=== PATIENT | female | born 1955 | race Caucasian/White ===

== ENCOUNTER 2016-06-15 11:34 | Observation (INO) ==
--- NOTE | 2016-06-15 13:18 | Emergency Department Note ---
Addendum entered and electronically signed by Yoselin Helton DO 15:37: This is an addendum for patient's history. She does not use dialysis. I believe this is possibly supposed to be diabetes. This was an error. Original Note: Disposition Clinical Impression: Lower gastrointestinal hemorrhage Disposition: Home, Self-Care Condition: Good Time of Disposition: 14:45 General Adult HPI - General Chief complaint: ED GI Bleed Stated complaint: rectal bleeding Time Seen by Provider: 06/15/16 11:49 Source: patient Limitations: no limitations - History of Present Illness HPI Narrative: Patient had 4 episodes of hematochezia prior to arrival. Had a colonoscopy with 4 polyps removed 2 weeks ago. Had abdominal cramping and diaphoresis while having the hematochezia. No other associated symptoms. Denies abdominal pain at this time. Pain Scale: 0 - Related Data Home Medications Medication Instructions Recorded Confirmed Ammonium Lactate [Rekha-Hydrolac] 1 appl TP TID 06/06/16 06/15/16 Aspirin 81 mg PO DAILY 06/06/16 06/15/16 Atorvastatin [Lipitor] 40 mg PO HS 06/06/16 06/15/16 Dulaglutide [Trulicity] 0.75 mg SQ QWEEK 06/06/16 06/15/16 Duloxetine HCl [Cymbalta] 60 mg PO DAILY 06/06/16 06/15/16 Fenofibrate [Lofibra] 160 mg PO DAILY 06/06/16 06/15/16 HYDROcodone/Acet 5/325 mg [[place] 1 tab PO Q6H PRN 06/06/16 06/15/16 5-325 mg] Levothyroxine [Synthroid] 50 mcg PO DAILY 06/06/16 06/15/16 Linagliptin [Tradjenta] 5 mg PO DAILY 06/06/16 06/15/16 Lisinopril [Zestril] 40 mg PO DAILY 06/06/16 06/15/16 Magnesium Oxide [Magnesium] 400 mg PO DAILY 06/06/16 06/15/16 Metformin HCl [Glucophage] 1,000 mg PO BID 06/06/16 06/15/16 [place]-3 Acid Ethyl Esters [Lovaza] 4 gm PO DAILY 06/06/16 06/15/16 Pregabalin [Lyrica] 150 mg PO TID 06/06/16 06/15/16 Ranitidine HCl [Zantac] 150 mg PO BID 06/06/16 06/15/16 glipiZIDE [Glipizide] 10 mg PO BID 06/06/16 06/15/16 Allergies Allergy/AdvReac Type Severity Reaction Status Date / Time No Known Allergies Allergy Verified 06/15/16 11:36 All systems ED: reviewed and negative except as stated. Constitutional: Denies: fever, chills Cardiovascular: Denies: chest pain, palpitations, dyspnea on exertion, syncope Respiratory: Denies: cough, dyspnea Gastrointestinal: Reports: abdominal pain (Cramping early this morning when she had hematochezia.), diarrhea ( 2 week history of intermittent diarrhea), hematochezia. Denies: nausea, vomiting Genitourinary: Denies: urgency, dysuria, frequency, hematuria Musculoskeletal: Denies: back pain, neck pain Integumentary: Denies: rash Neurological: Denies: headache, weakness Past Medical History - Past Medical History Medical history: Reports: dialysis, hyperlipidemia, hypertension, thyroid disease Surgical history: Reports: appendectomy, hysterectomy, thyroidectomy Psychiatric history: Reports: depression SODA ROOM OPERATOR history: Reports: no SODA ROOM OPERATOR history - Social History Smoking Status: Current every day smoker Smokeless Tobacco Status: No Alcohol use: Reports: none Drug use: Reports: none Physical Exam - General Limitations: no limitations General appearance: alert, in no apparent distress - Head Head exam: atraumatic, normocephalic - Eye Eye exam: Present: normal appearance, PERRL, EOMI - ENT ENT exam: normal exam, normal oropharynx, mucous membranes moist - Neck Neck exam: Present: normal inspection, full ROM - Chest Chest inspection: Present: normal inspection, symmetric chest wall rise. Absent : tenderness - Respiratory Respiratory exam: Present: normal lung sounds bilaterally. Absent: respiratory distress - Cardiovascular Cardiovascular exam: Present: regular rate, normal rhythm, normal heart sounds - Abdominal Exam Abdominal exam: Present: soft, Non-Tender, normal bowel sounds - Extremities Exam Extremities exam: Present: normal inspection, full ROM, normal capillary refill. Absent: tenderness, pedal edema - Back Exam Back exam: Present: normal inspection, full ROM. Absent: tenderness - Neurological Exam Neurological exam: Present: alert, oriented X3 - Psychiatric Psychiatric exam: Present: normal affect, normal mood - Skin Skin exam: Present: warm, dry, intact, normal color Course Course Narrative: Well-appearing female patient resting comfortably in bed. On my initial presentation to the room patient was attempting to urinate. She states that this morning she woke up felt her stomach "gurgling." She then went to have a bowel movement. She states that when she feels that she thinks she has diarrhea. When she stood up she noticed that the toilet was full of a bright red blood as well as blood clots. She states this happened 3 other times. She states when her abdomen cramps this morning she got very sweaty. She denies any abdominal pain nausea or vomiting at this time. Her abdomen is soft nontender on exam. She is obese so this limits the exam. She denies any shortness of breath or chest pain. Her lung sounds are clear and her heart tones are normal. She does take aspirin daily. She had a colonoscopy 2 weeks ago with 4 polyps removed. She has had no bleeding since. She is complaining of intermittent diarrhea since May 21. She states that this comes and goes. We will get basic lab workup on patient as well as do a rectal exam and sent for a UA. She has no request at this time. - Reevaluation(s) Reevaluation #1: Patient's hemoglobin has decreased to 11.7 from 15 on June 06. She has had no episodes of hematochezia since she has been here. She is resting comfortably in bed. She is hyperkalemic at 5.5 and hyperglycemic at 356. We will give her 4 units of insulin. I spoke with Dr. Moran we will admit her to the hospital. - Consultations Consultation #1: Spoke with Dr. Moran. He is requesting admission and states he will see the patient while she is here. Time: 14:28 Consultation #2: Spoke with Dao EARL she accepted the Pt in stable condition Time: 14:29 Vital Signs Temperature 97.5 F L 06/15/16 11:36 Pulse Rate 105 06/15/16 11:36 Respiratory Rate 18 06/15/16 11:36 Blood Pressure 156/71 06/15/16 11:36 O2 Sat by Pulse Oximetry 94 06/15/16 11:36 Temperature 97.9 F 06/15/16 16:22 Pulse Rate 89 06/15/16 16:22 Respiratory Rate 17 06/15/16 16:22 Blood Pressure 148/70 06/15/16 16:22 O2 Sat by Pulse Oximetry 95 06/15/16 16:22 Oxygen Delivery Oxygen Delivery Room Air Medical Decision Making - Medical Records Medical records reviewed: Yes I reviewed the patient's medical records. - Lab Data Lab results reviewed: Yes I reviewed the patient's lab results. Result diagrams: 06/15/16 14:52 06/15/16 13:28 Lab Results 06/15/16 06/15/16 06/15/16 Range/Units 13:28 13:28 14:00 WBC 10.6 (4.3-11.1) K/mcL RBC 4.08 (3.82-4.97) M/mcL Hgb 11.7 (11.5-15.4) g/dL Hct 35.3 (35.3-44.9) % MCV 86.5 (83.0-100.0) fL MCH 28.7 (28.0-33.3) pg MCHC 33.1 (31.6-35.5) g/dL RDW 13.7 (11.5-14.5) % Plt Count 334 (140-400) K/mcL MPV 9.7 (9.4-12.4) fL Immature Gran % 0.5 (0-4) % Seg Neutrophils % 71.7 % Lymphocytes % 20.9 % Monocytes % 5.9 % Eosinophils % 0.7 % Basophils % 0.3 % Neutrophils # 7.6 (1.6-8.9) K/mcL Lymphocytes # 2.2 (0.6-4.6) K/mcL Monocytes # 0.6 (0.0-1.3) K/mcL Eosinophils # 0.1 (0.0-0.6) K/mcL Basophils # 0.0 (0.0-0.2) K/mcL Sodium 133 L (136-145) mEq/L Potassium 5.5 H (3.5-4.5) mEq/L Chloride 101 (98-109) mEq/L Carbon Dioxide 22 (19-29) mEq/L BUN 31 H (7-20) mg/dL Creatinine 1.09 (0.57-1.11) mg/dL Est GFR ( Amer) > 60 (> 60) Est GFR (Non-Af Amer) 51 L (> 60) BUN/Creatinine Ratio 28 H (6-26) Glucose 356 H (70-99) mg/dL Calculated Osmolality 297 (280-300) Calcium 10.1 (8.6-10.8) mg/dL Total Bilirubin 0.3 (0.2-1.2) mg/dL AST 17 (5-34) Units/L ALT 22 (0-55) Units/L Alkaline Phosphatase 63 (38-126) Units/L Serum Total Protein 6.2 (6.0-8.3) g/dL Albumin 3.1 L (3.5-5.0) g/dL Globulin 3.1 (2.4-3.5) g/dL Albumin/Globulin Ratio 1.0 L (1.1-2.2) Stool Occult Blood Positive A (Negative) 06/15/16 Range/Units 14:52 WBC (4.3-11.1) K/mcL RBC (3.82-4.97) M/mcL Hgb 11.1 L (11.5-15.4) g/dL Hct 33.3 L (35.3-44.9) % MCV (83.0-100.0) fL MCH (28.0-33.3) pg MCHC (31.6-35.5) g/dL RDW (11.5-14.5) % Plt Count (140-400) K/mcL MPV (9.4-12.4) fL Immature Gran % (0-4) % Seg Neutrophils % % Lymphocytes % % Monocytes % % Eosinophils % % Basophils % % Neutrophils # (1.6-8.9) K/mcL Lymphocytes # (0.6-4.6) K/mcL Monocytes # (0.0-1.3) K/mcL Eosinophils # (0.0-0.6) K/mcL Basophils # (0.0-0.2) K/mcL Sodium (136-145) mEq/L Potassium (3.5-4.5) mEq/L Chloride (98-109) mEq/L Carbon Dioxide (19-29) mEq/L BUN (7-20) mg/dL Creatinine (0.57-1.11) mg/dL Est GFR ( Amer) (> 60) Est GFR (Non-Af Amer) (> 60) BUN/Creatinine Ratio (6-26) Glucose (70-99) mg/dL Calculated Osmolality (280-300) Calcium (8.6-10.8) mg/dL Total Bilirubin (0.2-1.2) mg/dL AST (5-34) Units/L ALT (0-55) Units/L Alkaline Phosphatase (38-126) Units/L Serum Total Protein (6.0-8.3) g/dL Albumin (3.5-5.0) g/dL Globulin (2.4-3.5) g/dL Albumin/Globulin Ratio (1.1-2.2) Stool Occult Blood (Negative) - Radiology Data Radiology results reviewed: Yes I reviewed the patient's radiology results. Attestation Statement - Attestation Attestation: I examined this patient and my medical decision-making was reviewed with the STORM SASH MAKER/PA/Advanced Practice Nurse/Resident Physician. I agree with the documented findings, disposition and treatment plan as described except to the extent set forth below. 61-year-old female presents to the emergency department because of rectal bleeding. She had 4 bloody bowel movements since 6 AM today. She became diaphoretic at one point but that has since resolved. Denies abdominal discomfort. No dysuria. No hematuria. No vomiting. She did have colonoscopy 2-1/[address] Moran at which time several polyps were removed. She had no bleeding the day of the procedure. No history of diverticulitis or colitis. No history of GI bleeds. No recent change in medications. Takes aspirin daily but no other anticoagulant. Pleasant female in no apparent distress. Oropharynx clear mucous membranes moist. Chest is clear to auscultation bilaterally. Abdomen soft, nondistended nontender. Rectal exam with bright red blood on examination. No hemorrhoids appreciated. Extremities well perfused, warm and dry. He will was 11.7 but this is down from 15.2 on her most recent labs within the last 2 weeks. The was elevated at 31 creatinine 0.7. Case was discussed with Dr. Moran who recommended admission to the hospital he will see in consultation. She will be admitted for serial hemoglobin and possible repeat colonoscopy.
[2016-06-15 13:35] LABS: Basophils % 0.3 %; Eosinophils # 0.1 K/mcL (0.0-0.6); Eosinophils % 0.7 %; Hematocrit 35.3 % (35.3-44.9); Hemoglobin 11.7 g/dL (11.5-15.4); Immature Granulocytes % 0.5 % (0-4); Lymphocytes # 2.2 K/mcL (0.6-4.6); Lymphocytes % 20.9 %; Mean Corpuscular HGB Conc 33.1 g/dL (31.6-35.5); Mean Corpuscular Hemoglobin 28.7 pg (28.0-33.3); Mean Corpuscular Volume 86.5 fL (83.0-100.0); Mean Platelet Volume 9.7 fL (9.4-12.4); Monocytes # 0.6 K/mcL (0.0-1.3); Monocytes % 5.9 %; Neutrophils # 7.6 K/mcL (1.6-8.9); Platelet Count 334 K/mcL (140-400); Red Blood Count 4.08 M/mcL (3.82-4.97); Red Cell Distribution Width 13.7 % (11.5-14.5); Segmented Neutrophils % 71.7 %
[2016-06-15 13:51] LABS: Alanine Aminotransferase 22 Units/L (0-55); Albumin 3.1 g/dL (3.5-5.0); Alkaline Phosphatase 63 Units/L (38-126); Aspartate Amino Transferase 17 Units/L (5-34); BUN/Creatinine Ratio 28 (6-26); Bilirubin,Total 0.3 mg/dL (0.2-1.2); Blood Urea Nitrogen 31 mg/dL (7-20); Calcium 10.1 mg/dL (8.6-10.8); Carbon Dioxide 22 mEq/L (19-29); Chloride 101 mEq/L (98-109); Globulin 3.1 g/dL (2.4-3.5); Glucose 356 mg/dL (70-99); Osmolality,Calculated 297 (280-300); Potassium 5.5 mEq/L (3.5-4.5); Sodium 133 mEq/L (136-145); Total Protein 6.2 g/dL (6.0-8.3); eGFR For African Americans > 60 (> 60); eGFR For Non-African Americans 51 (> 60)
[2016-06-15] MEDS ORDERED: Insulin Regular, Human 100 UNIT/ML SQ ONE ×2 (14:15→14:16)
[2016-06-15] MEDS ORDERED: Naloxone 0.4 MG/ML INJ IVP PRN (14:29)
[2016-06-15] MEDS ORDERED: *HR* Dextrose 50 % in Water (Syg) 50 ML SYRINGE IVP PRN (14:36)
[2016-06-15] MEDS ORDERED: Dextrose Gel 15 GM PO PRN ×2 (14:36)
[2016-06-15] MEDS ORDERED: D5% in Water 1,000 ML IVC PRN (14:36)
[2016-06-15 14:58] LABS: Hematocrit 33.3 % (35.3-44.9); Hemoglobin 11.1 g/dL (11.5-15.4)
--- NOTE | 2016-06-15 15:21 | Internal Med History&Physical ---
<Carlos Dcsandra Faustin - Last Filed: 06/15/16 15:29> Date of Encounter: 06/15/16 Time of Encounter: 15:15 Assessment and Plan (1) Hematochezia Current visit: Yes Status: Acute with 3 large volume bloody stools prior to admission; none since arrival. Had C- scope 2 weeks ago with 4 polyps removed. Hgb 11 (previously 15 on 06/06/2016). Stool occult blood + in ED. Not on anticoagulation. Take NSAIDS occasionally, no Etoh use. Hold home ASA. Clear liquid diet, IV PPI, monitor H&H, transfuse for Hgb less than 8. GI consulted (2) Abdominal hernia Current visit: Yes Status: Acute suspected based on exam. No previous imaging. Check ABD CT Qualifiers: Hernia type: other abdominal hernia Obstruction and gangrene presence: without obstruction or gangrene Qualified Code(s): K45.8 - Other specified abdominal hernia without obstruction or gangrene (3) GERD (gastroesophageal reflux disease) Current visit: Yes Status: Acute per hx. Sx's typically controlled with PPI. Pt reports worsening sx's for 3 weeks prior to admission. IV PPI. GI consulted Qualifiers: Esophagitis presence: esophagitis presence not specified Qualified Code(s) : K21.9 - Gastro-esophageal reflux disease without esophagitis (4) Hyperkalemia Current visit: Yes Status: Acute K 5.5. Kayexalate. Monitor repeat CMP (5) Hypertension Current visit: Yes Status: Acute per hx. BP controlled in ED. Hold home BP medications at this time with possible GI bleed. Resume if BP elevates or when able to take full diet. Monitor BP Qualifiers: Hypertension type: essential hypertension Qualified Code(s): I10 - Essential (primary) hypertension (6) Diabetes Current visit: Yes Status: Acute per hx. Recent Hgb A1c 7.2 per patient report. Blood sugar in 300s on arrival due to not taking home medications. Received sub-q insulin in the ED. Hold home oral hypoglycemics. SSI. Monitor blood sugar and titrate PRN Qualifiers: Diabetes mellitus type: type 2 Diabetes mellitus complication status: with neurologic complications Diabetes mellitus complication detail: with polyneuropathy Diabetes mellitus long term care social worker insulin use: without longterm use Qualified Code(s): E11.42 - Type 2 diabetes mellitus with diabetic polyneuropathy (7) DVT prophylaxis Current visit: Yes Status: Acute SCD Internal Medicine - H&P: HPI Chief complaint: bloody stool Admitted From: Home History of present illness: Ms. Hammond is a 61 year old female with pMH obesity, diabetes, HTN and GERD who presented to [facility] on 06/15/2016 with reports of large volume bright red stools. She was placed in observation status for continued H&H monitor and GI consultation. Information obtained from chart review and patient report. Patient says stomach was "gurgling" with cramping earlier today. She went to bath room and had bowel movement when she noticed toilet was "full of blood and cots". She reports 3 large volume bloody stools prior to admission. Also reported worsening GERD, says sx's typically controlled with PPI but has required tums over the last 3 weeks. No ABD pain, N/V, no CP, no SOB. Past Med Surg Social Fam HX - Past Medical History Medical history: dialysis, hyperlipidemia, hypertension, thyroid disease Psychiatric history: depression - Past Surgical History Surgical History: appendectomy, hysterectomy, thyroidectomy - Social History Smoking Status: Current every day smoker Smokeless Tobacco Status: No Alcohol use: none Drug use: none - Family History Father Hx Family Cancer: Yes (colon cancer ) Internal Medicine - H&P: Meds Ammonium Lactate [Rekha-Hydrolac] 1 appl TP TID 06/06/16 [History] Aspirin 81 mg PO DAILY 06/06/16 [History] Atorvastatin [Lipitor] 40 mg PO HS 06/06/16 [History] Dulaglutide [Trulicity] 0.75 mg SQ QWEEK 06/06/16 [History] Duloxetine HCl [Cymbalta] 60 mg PO DAILY 06/06/16 [History] Fenofibrate [Lofibra] 160 mg PO DAILY 06/06/16 [History] HYDROcodone/Acet 5/325 mg [[place] 5-325 mg] 1 tab PO Q6H PRN 06/06/16 [History] Levothyroxine [Synthroid] 50 mcg PO DAILY 06/06/16 [History] Linagliptin [Tradjenta] 5 mg PO DAILY 06/06/16 [History] Lisinopril [Zestril] 40 mg PO DAILY 06/06/16 [History] Magnesium Oxide [Magnesium] 400 mg PO DAILY 06/06/16 [History] Metformin HCl [Glucophage] 1,000 mg PO BID 06/06/16 [History] [place]-3 Acid Ethyl Esters [Lovaza] 4 gm PO DAILY 06/06/16 [History] Pregabalin [Lyrica] 150 mg PO TID 06/06/16 [History] Ranitidine HCl [Zantac] 150 mg PO BID 06/06/16 [History] glipiZIDE [Glipizide] 10 mg PO BID 06/06/16 [History] Allergies No Known Allergies Allergy (Verified 06/15/16 11:36) All Systems PM: A 10-system review of systems was performed and is negative for pertinent findings except as documented above in the HPI. - Constitutional Constitutional: no chills, no fever(s), no night sweats - EENT Eyes: no change in vision, no discharge, no pain, no photophobia Ears: no ear discharge, no ear pain, no tinnitus Nose, mouth and throat: no dysphagia, no nasal discharge, no neck pain, no sore throat - Cardiovascular Cardiovascular ROS IM: no chest pain, no diaphoresis, no dyspnea, no lightheadedness, no palpitations, no syncope - Respiratory Respiratory: no cough, no dyspnea, no wheezing, no excessive phlegm production - Gastrointestinal Gastrointestinal: change in bowel habits, cramping, dyspepsia, heartburn, hematochezia, loose stools, no abdominal pain, no hematemesis, no melena, no nausea, no vomiting - Genitourinary Genitourinary: no change in urinary stream, no dysuria, no flank pain, no hematuria - Musculoskeletal Musculoskeletal ROS IM: no numbness, no tingling - Integumentary Integumentary IM: no rash, no unusual bruising - Neurological Neurological ROS: no confusion, no convulsions, no focal weakness, no numbness, no tingling, no tremor(s) - Hematologic/Lymphatic Hematologic/Lymphatic: no easy bruising - Constitutional Vitals: Temp Pulse Resp BP Pulse Ox 97.5 F L 87 18 144/57 94 06/15/16 11:36 06/15/16 13:38 06/15/16 13:38 06/15/16 13:38 06/15/16 13:38 General appearance: Present: A&O X 3, no acute distress, obese - Head Head exam: Present: atraumatic, normocephalic - Eye Eye exam: Present: PERRL, conjuntiva pink, sclera anicteric Pupils: Present: PERRL - Neck Neck exam general surgery: Present: supple, trachea midline. Absent: lymphadenopathy - Respiratory Respiratory exam: Present: CTAB. Absent: accessory muscle use, rales, rhonchi, wheezes - Cardiovascular Cardiovascular exam: Present: RRR, +S1, +S2. Absent: diastolic murmur, gallop, rubs, systolic murmur - GI/Abdominal GI/Abdominal exam: Present: hernia, normal bowel sounds, soft, no peritoneal signs. Absent: distended, tenderness - Extremities Exam Extremities exam: Present: warm, radial pulses palpable and symetrical. Absent : calf tenderness, cyanotic, pedal edema - Neurological Exam Neurological exam: Present: CN II-XII intact, oriented X3, no focal deficits. Absent: pronater drift, facial droop, speech deficit - Skin Skin exam: Present: dry, intact Internal Med - H&P Results - Labs CBC & Chem 7: 06/15/16 14:52 06/15/16 13:28 Labs: Short CBC 06/15/16 06/15/16 Range/Units 13:28 14:52 WBC 10.6 (4.3-11.1) K/mcL Hgb 11.7 11.1 L (11.5-15.4) g/dL Hct 35.3 33.3 L (35.3-44.9) % Plt Count 334 (140-400) K/mcL Neutrophils # 7.6 (1.6-8.9) K/mcL BMP 06/15/16 13:28 Sodium 133 L Potassium 5.5 H Chloride 101 Carbon Dioxide 22 BUN 31 H Creatinine 1.09 Glucose 356 H Calcium 10.1 Liver Function 06/15/16 Range/Units 13:28 Total Bilirubin 0.3 (0.2-1.2) mg/dL AST 17 (5-34) Units/L ALT 22 (0-55) Units/L Alkaline Phosphatase 63 (38-126) Units/L Albumin 3.1 L (3.5-5.0) g/dL <Hany Stone - Last Filed: 06/15/16 17:09> Date of Encounter: 06/15/16 Time of Encounter: 16:30 Internal Medicine - H&P: HPI History of present illness: Ms. Hammond is a 61 year old female All Systems PM: A 10-system review of systems was performed and is negative for pertinent findings except as documented above in the HPI. - Constitutional Vitals: Temp Pulse Resp BP Pulse Ox 97.9 F 89 17 148/70 95 06/15/16 16:22 06/15/16 16:22 06/15/16 16:22 06/15/16 16:22 06/15/16 16:22 Internal Med - H&P Results - Labs CBC & Chem 7: 06/15/16 14:52 06/15/16 13:28 Labs: Urine 06/15/16 Range/Units 15:42 Urine Color Yellow (Yellow) Urine Clarity Cloudy A (Clear) Urine pH 6.0 (5.0-8.0) pH Units Ur Specific [place] 1.025 (1.010-1.025) Urine Protein >=300 H (Neg-Trace) mg/dL Urine Glucose (UA) 500 H (Normal) mg/dL - Attending Attestation I examined this patient and my medical decision-making was reviewed with the nurse practitioner. I agree with the documented history of present illness, review of systems, past medical, surgical social and family histories and examination findings, disposition and treatment plan as described above except to any changes set forth below. 61-year-old female patient with a history of colon polyps with recent colonoscopy about 2 weeks back presented to the ER with complaints of rectal bleeding. She had 2-3 episodes of large volume rectal bleeding with some blood clots early this morning. Since coming to the ER, she has not had any further episodes. She denies any abdominal pain, nausea or vomiting. She takes Advil about 1 tablet once or twice weekly. She does have a history of GERD and takes PPI. She is feeling much better now. No fever chills or night sweats. On examination, patient is awake and alert. Heart sounds and respiratory examination within normal limits. Abdominal examination shows an abdominal hernia without any tenderness. Acute GI bleed: Consult GI. Hemoglobin 11.7 today compared to 15 earlier this month. Will monitor blood counts. Continue PPI. Moderate risk for complications. Hyperkalemia: We will recheck potassium levels and treat accordingly. Abdominal hernia: No obstruction or strangulation. Currently no symptoms. Follow up outpatient with PCP and possibly surgery. Essential hypertension: Monitor blood pressure. Resume home medications. Diabetes mellitus type 2: Monitor blood sugars. Patient does have underlying diabetic neuropathy. Continue Lyrica.
[2016-06-15] MEDS ORDERED: *HR* HYDROcodone/Acet 5/325 mg TABLET PO PRN (15:40)
[2016-06-15] MEDS ORDERED: 0.9 % Sodium Chloride 1,000 ML IVC SCH (15:45)
[2016-06-15 16:05] LABS: Bilirubin,Urine Negative (Negative); Blood,Urine Negative (Negative); Clarity,Urine Cloudy (Clear); Color,Urine Yellow (Yellow); Glucose,Urine (UA) 500 mg/dL (Normal); Ketones,Urine Negative (Negative); Leukocyte Esterase,Urine Trace (Negative); Nitrite,Urine Positive (Negative); Protein,Urine >=300 mg/dL (Neg-Trace); Specific Gravity,Urine 1.025 (1.010-1.025); Urobilinogen,Urine Normal (Normal)
[2016-06-15 16:06] LABS: Bacteria,Urine Many per hpf (None-Few); Hyaline Casts,Urine None Seen per lpf (None-Few); RBC,Urine 0-3 per hpf (0-3); Squamous Epithelial Cell,Urine Moderate per lpf (None-Few); WBC,Urine 30-50 per hpf (0-3)
[2016-06-15] MEDS ORDERED: Pregabalin 75 MG CAPSULE PO ONE (17:44)
[2016-06-15] MEDS: Nicotine 21 MG PATCH.TD24 TD SCH (17:53)
[2016-06-15] MEDS: Insulin LISPRO 300 UNITS/3 ML VIAL SQ SCH (17:58)
[2016-06-15 20:19] LABS: Hematocrit 31.7 % (35.3-44.9); Hemoglobin 10.6 g/dL (11.5-15.4)
[2016-06-15] MEDS ORDERED: PEG/Electrolytes/Ascorbic Acid 1 EACH POWD.PACK PO ONE (20:30)
--- NOTE | 2016-06-15 20:38 | Internal Medicine Consult Note ---
Date of Encounter: 06/15/16 Time of Encounter: 20:35 - Assessment and Plan (1) Acute blood loss anemia Current Visit: Yes Status: Acute Assessment and plan: There has been a very mild trend downward of her hemoglobin, she is still above 10.5. It does appear at this time her bleeding stopped. With that in mind, we' ll go and provide colon prep this evening, in the event that she does decide to drop her hemoglobin or experiences more rectal bleeding, we will be able plan colonoscopy. I have discussed the risks and benefit of the procedure once again to her, we'll make sure she signed consent. Again this thought to be a post polypectomy colonic bleed. The hospitalist has checked hemoglobins to the evening, which appears appropriate. (2) Lower gastrointestinal hemorrhage Current Visit: Yes Status: Acute (3) Hypertension Current Visit: Yes Status: Chronic Qualifiers: Hypertension type: essential hypertension Qualified Code(s): I10 - Essential (primary) hypertension (4) Diabetes Current Visit: Yes Status: Acute Qualifiers: Diabetes mellitus type: type 2 Diabetes mellitus complication status: with neurologic complications Diabetes mellitus complication detail: with polyneuropathy Diabetes mellitus middle or intermediate school principal insulin use: without fpc use Qualified Code(s): E11.42 - Type 2 diabetes mellitus with diabetic polyneuropathy (5) GERD (gastroesophageal reflux disease) Current Visit: Yes Status: Chronic Qualifiers: Esophagitis presence: esophagitis presence not specified Qualified Code(s) : K21.9 - Gastro-esophageal reflux disease without esophagitis (6) History of adenomatous polyp of colon Current Visit: Yes Status: Chronic Internal Medicine - CN: HPI - Data of Consult Patient: known to practice within the last 3 years Consult date: 06/15/16 Requesting Physician: Eb Mcguire - Consult Narrative Reason for consult: GI Bleeding; post-polypectomy approx. 14 days ago History of present illness: Ms. Hammond is a 61 year old female presented to the ER this morning with 3 brisk bright, red bowel movements with clots, she is approximately 2 weeks out of having a polypectomy by myself, with 4 polyps being removed, all very small, with hot forceps. She felt well until this morning. Her spells were Anderson was a little diaphoresis. In some vague periumbilical cramping. Since her arrival to the emergency room earlier today, she has seen no further blood and feels well when walking in her room. Past Med Surg Social Fam HX - Past Medical History Medical history: diabetes, hyperlipidemia, hypertension, thyroid disease Psychiatric history: depression - Past Surgical History Surgical History: appendectomy, hysterectomy, thyroidectomy - Social History Smoking Status: Current every day smoker Packs per day: 2 Smokeless Tobacco Status: No Alcohol use: none Drug use: none - Family History Father Age: 81 Living Status: Still Living Hx Family Cancer: Yes (colon cancer ) - Constitutional Constitutional: excessive sweating, no anorexia, no chills, no fatigue, no fever (s), no lethargy - Cardiovascular Cardiovascular ROS IM: diaphoresis, no chest pain, no dyspnea, no dyspnea on exertion, no lightheadedness, no orthopnea, no syncope - Respiratory Respiratory: cough, no dyspnea - Gastrointestinal Gastrointestinal: abdominal pain, change in bowel habits, hematochezia, no belching, no heartburn, no hematemesis, no melena, no nausea, no vomiting Internal Medicine - CN: Meds Ammonium Lactate [Rekha-Hydrolac] 1 appl TP TID 06/06/16 [History] Aspirin 81 mg PO DAILY 06/06/16 [History] Atorvastatin [Lipitor] 40 mg PO HS 06/06/16 [History] Dulaglutide [Trulicity] 0.75 mg SQ QWEEK 06/06/16 [History] Duloxetine HCl [Cymbalta] 60 mg PO DAILY 06/06/16 [History] Fenofibrate [Lofibra] 160 mg PO DAILY 06/06/16 [History] HYDROcodone/Acet 5/325 mg [[place] 5-325 mg] 1 tab PO Q6H PRN 06/06/16 [History] Levothyroxine [Synthroid] 50 mcg PO DAILY 06/06/16 [History] Linagliptin [Tradjenta] 5 mg PO DAILY 06/06/16 [History] Lisinopril [Zestril] 40 mg PO DAILY 06/06/16 [History] Magnesium Oxide [Magnesium] 400 mg PO DAILY 06/06/16 [History] Metformin HCl [Glucophage] 1,000 mg PO BID 06/06/16 [History] [place]-3 Acid Ethyl Esters [Lovaza] 4 gm PO DAILY 06/06/16 [History] Pregabalin [Lyrica] 150 mg PO TID 06/06/16 [History] Ranitidine HCl [Zantac] 150 mg PO BID 06/06/16 [History] glipiZIDE [Glipizide] 10 mg PO BID 06/06/16 [History] Allergies No Known Allergies Allergy (Verified 06/15/16 11:36) Internal Medicine - CN: Exam - Constitutional Vitals: Temp Pulse Resp BP Pulse Ox 98.3 F 81 14 105/67 95 06/15/16 19:59 06/15/16 19:59 06/15/16 19:59 06/15/16 19:59 06/15/16 19:59 General appearance IM: Present: A&O X 3, no acute distress, obese, answers questions appropriately - Head Head exam: Present: normal inspection - Eye Eye exam: Present: conjuntiva pink, sclera anicteric - ENT ENT exam: Present: mucous membranes moist - Neck Neck exam general surgery: Present: full ROM, normal inspection. Absent: nuchal rigidity - Respiratory Respiratory exam: Present: CTAB. Absent: tachypnea - Cardiovascular Cardiovascular exam IM: Present: RRR. Absent: JVD, systolic murmur - GI/Abdominal GI/Abdominal exam IM: Present: distended, normal bowel sounds, soft, no peritoneal signs. Absent: hepatomegaly, rebound, rigid - Rectal Rectal exam: Present: deferred Internal Medicine - CN: Reslt - Labs CBC & Chem 7: 06/15/16 20:12 06/15/16 18:14 Labs: Short CBC 06/15/16 Range/Units 20:12 Hgb 10.6 L (11.5-15.4) g/dL Hct 31.7 L (35.3-44.9) % BMP 06/15/16 18:14 Potassium 4.6 H Urine 06/15/16 Range/Units 15:42 Urine Color Yellow (Yellow) Urine Clarity Cloudy A (Clear) Urine pH 6.0 (5.0-8.0) pH Units Ur Specific [place] 1.025 (1.010-1.025) Urine Protein >=300 H (Neg-Trace) mg/dL Urine Glucose (UA) 500 H (Normal) mg/dL Consult Discharge Plan - Plan Referrals: Neel Rasheed DO [Primary Care Provider] -
[2016-06-15] MEDS ORDERED: Insulin LISPRO 300 UNITS/3 ML VIAL SQ SCH (21:00)
[2016-06-15] MEDS ORDERED: Pantoprazole 40 MG VIAL IVP SCH (21:00)
[2016-06-15] MEDS: Pregabalin 75 MG CAPSULE PO SCH (21:57)
[2016-06-16 04:49] LABS: Basophils % 0.3 %; Eosinophils # 0.1 K/mcL (0.0-0.6); Eosinophils % 1.4 %; Hematocrit 34.2 % (35.3-44.9); Hemoglobin 11.3 g/dL (11.5-15.4); Immature Granulocytes % 0.3 % (0-4); Lymphocytes # 3.6 K/mcL (0.6-4.6); Lymphocytes % 40.5 %; Mean Corpuscular Hemoglobin 29.6 pg (28.0-33.3); Mean Corpuscular Volume 89.5 fL (83.0-100.0); Mean Platelet Volume 10.4 fL (9.4-12.4); Monocytes # 0.7 K/mcL (0.0-1.3); Neutrophils # 4.4 K/mcL (1.6-8.9); Platelet Count 315 K/mcL (140-400); Red Blood Count 3.82 M/mcL (3.82-4.97); Segmented Neutrophils % 49.5 %
[2016-06-16 05:25] LABS: Alanine Aminotransferase 22 Units/L (0-55); Albumin 3.3 g/dL (3.5-5.0); Albumin/Globulin Ratio 1.1 (1.1-2.2); Alkaline Phosphatase 41 Units/L (38-126); Aspartate Amino Transferase 22 Units/L (5-34); BUN/Creatinine Ratio 26 (6-26); Bilirubin,Total 0.3 mg/dL (0.2-1.2); Blood Urea Nitrogen 24 mg/dL (7-20); Calcium 10.1 mg/dL (8.6-10.8); Carbon Dioxide 25 mEq/L (19-29); Chloride 106 mEq/L (98-109); Globulin 3.1 g/dL (2.4-3.5); Glucose 98 mg/dL (70-99); Osmolality,Calculated 298 (280-300); Potassium 4.7 mEq/L (3.5-4.5); Total Protein 6.4 g/dL (6.0-8.3); eGFR For African Americans > 60 (> 60); eGFR For Non-African Americans > 60 (> 60)
[2016-06-16 05:26] LABS: Sodium 142 mEq/L (136-145)
[2016-06-16 07:20] LABS: Hemoglobin 11.8 g/dL (11.5-15.4)
--- NOTE | 2016-06-16 07:36 | Internal Med Progress Note ---
Date of Encounter: 06/16/16 Time of Encounter: 07:33 - Assessment and plan (1) Acute blood loss anemia Current Visit: Yes Status: Acute Assessment and plan: Bleeding has stopped.. I believe it to be unlikely she would start again, but this is not 100%. She will have my phone number to call with any questions. I have talked to the Hospitalists who will DC her at noon if she cont. to do well.. She will not take any NSAIDs, ASA or Lovaza. Therefore will advancer her diet this AM (2) Lower gastrointestinal hemorrhage Current Visit: Yes Status: Acute (3) Hypertension Current Visit: Yes Status: Chronic Qualifiers: Hypertension type: essential hypertension Qualified Code(s): I10 - Essential (primary) hypertension (4) Diabetes Current Visit: Yes Status: Acute Qualifiers: Diabetes mellitus type: type 2 Diabetes mellitus complication status: with neurologic complications Diabetes mellitus complication detail: with polyneuropathy Diabetes mellitus parts counterman insulin use: without parts counterman use Qualified Code(s): E11.42 - Type 2 diabetes mellitus with diabetic polyneuropathy (5) GERD (gastroesophageal reflux disease) Current Visit: Yes Status: Chronic Qualifiers: Esophagitis presence: esophagitis presence not specified Qualified Code(s) : K21.9 - Gastro-esophageal reflux disease without esophagitis (6) History of adenomatous polyp of colon Current Visit: Yes Status: Chronic - Subjective Interval history: She is doing well.. no further blood in stools... her HGB has increased. She has had no further abd. cramping. She is 25 hrs. out of bleeding. - Constitutional Vitals: Temp Pulse Resp BP Pulse Ox 97.6 F 89 16 117/81 96 06/16/16 06:52 06/16/16 06:52 06/16/16 06:52 06/16/16 06:52 06/16/16 06:52 General appearance: Present: A&O X 3, no acute distress, obese, answers questions appropriately - Respiratory Respiratory exam: Present: CTAB - Cardiovascular Cardiovascular exam: Present: +S1, +S2 Additional comments: Ectopic beats noted. - GI/Abdominal GI/Abdominal exam: Present: normal bowel sounds, soft, no peritoneal signs. Absent: mass Internal Medicine: Result - Labs CBC & Chem 7: 06/16/16 06:43 06/16/16 00:53 Labs: Short CBC 06/15/16 06/16/16 06/16/16 Range/Units 20:12 00:53 06:43 WBC 8.8 (4.3-11.1) K/mcL Hgb 10.6 L 11.3 L 11.8 (11.5-15.4) g/dL Hct 31.7 L 34.2 L 36.0 (35.3-44.9) % Plt Count 315 (140-400) K/mcL Neutrophils # 4.4 (1.6-8.9) K/mcL BMP 06/15/16 06/16/16 18:14 00:53 Sodium 142 D Potassium 4.6 H 4.7 H Chloride 106 Carbon Dioxide 25 BUN 24 H Creatinine 0.92 Glucose 98 Calcium 10.1 Liver Function 06/16/16 Range/Units 00:53 Total Bilirubin 0.3 (0.2-1.2) mg/dL AST 22 (5-34) Units/L ALT 22 (0-55) Units/L Alkaline Phosphatase 41 (38-126) Units/L Albumin 3.3 L (3.5-5.0) g/dL Urine 06/15/16 Range/Units 15:42 Urine Color Yellow (Yellow) Urine Clarity Cloudy A (Clear) Urine pH 6.0 (5.0-8.0) pH Units Ur Specific [place] 1.025 (1.010-1.025) Urine Protein >=300 H (Neg-Trace) mg/dL Urine Glucose (UA) 500 H (Normal) mg/dL Consult Discharge Plan - Plan Additional Instructions: NO ASA NO NSAIDS NO Lovaza These meds are to be stopped for two weeks. Referrals: Neel Rasheed DO [Primary Care Provider] -
[2016-06-16] MEDS: Nicotine 21 MG PATCH.TD24 TD SCH (08:06)
[2016-06-16] MEDS: Pregabalin 75 MG CAPSULE PO SCH (08:06)
[2016-06-16] MEDS: Insulin LISPRO 300 UNITS/3 ML VIAL SQ SCH ×2 (08:07→11:53)
[2016-06-16] MEDS ORDERED: Lisinopril 20 MG TABLET PO SCH (09:00)
[2016-06-16 11:12] VITALS: BP 125/60
--- NOTE | 2016-06-16 12:05 | Discharge Summary ---
Date of Encounter: 06/16/16 Time of Encounter: 12:03 - Discharge Diagnosis (1) Hematochezia Priority: Primary Status: Acute Comments: secondary to prior colonic polypectomy while taking aspirin (2) Hypertension Priority: Secondary Status: Chronic Qualifiers: Hypertension type: essential hypertension Qualified Code(s): I10 - Essential (primary) hypertension (3) Diabetes Priority: Secondary Status: Acute Qualifiers: Diabetes mellitus type: type 2 Diabetes mellitus complication status: with neurologic complications Diabetes mellitus complication detail: with polyneuropathy Diabetes mellitus terminal computer operator insulin use: without [place] [facility] use Qualified Code(s): E11.42 - Type 2 diabetes mellitus with diabetic polyneuropathy (4) GERD (gastroesophageal reflux disease) Priority: Secondary Status: Chronic Qualifiers: Esophagitis presence: esophagitis presence not specified Qualified Code(s) : K21.9 - Gastro-esophageal reflux disease without esophagitis (5) History of adenomatous polyp of colon Priority: Secondary Status: Chronic (6) Acute blood loss anemia Priority: Primary Status: Acute Comments: stable - Discharge Medications Home Medications: Ammonium Lactate [Rekha-Hydrolac] 1 appl TP TID 06/06/16 [History] Atorvastatin [Lipitor] 40 mg PO HS 06/06/16 [History] Dulaglutide [Trulicity] 0.75 mg SQ QWEEK 06/06/16 [History] Duloxetine HCl [Cymbalta] 60 mg PO DAILY 06/06/16 [History] Fenofibrate [Lofibra] 160 mg PO DAILY 06/06/16 [History] HYDROcodone/Acet 5/325 mg [[place] 5-325 mg] 1 tab PO Q6H PRN 06/06/16 [History] Levothyroxine [Synthroid] 50 mcg PO DAILY 06/06/16 [History] Linagliptin [Tradjenta] 5 mg PO DAILY 06/06/16 [History] Lisinopril [Zestril] 40 mg PO DAILY 06/06/16 [History] Magnesium Oxide [Magnesium] 400 mg PO DAILY 06/06/16 [History] Metformin HCl [Glucophage] 1,000 mg PO BID 06/06/16 [History] [place]-3 Acid Ethyl Esters [Lovaza] 4 gm PO DAILY 06/06/16 [History] Pregabalin [Lyrica] 150 mg PO TID 06/06/16 [History] Ranitidine HCl [Zantac] 150 mg PO BID 06/06/16 [History] glipiZIDE [Glipizide] 10 mg PO BID 06/06/16 [History] Allergies/Adverse Reactions: Allergies No Known Allergies Allergy (Verified 06/15/16 11:36) Date of admission: 06/15/16 15:38 Primary care physician: Sb De La Cruz - Patient Status Disposition: Home, Self-Care Condition: Good Overall status at discharge: patient is back to baseline - Discharge Instructions Follow Up With: Neel Rasheed DO [Primary Care Provider] - 06/20/16 1:30 pm Additional Instructions: Follow p with primary care physician in 1 week. NO Aspirin, NO NSAIDS NO Lovaza These meds are to be stopped for two weeks. - Diet and Activity Activity: increase activity as tolerated Diet: diabetic diet Hospital course: Ms. Hammond is a 61 year old female with pMH obesity, diabetes not insulin dep, HTN and GERD who presented to [facility] on 06/15/2016 with reports of large volume bright red stools. She was placed in observation status for continued H&H monitor and GI consultation. Patient mentioned that her stomach was "gurgling" with cramping . She went to bath room and had a bowel movement when she noticed toilet was "full of blood and cots". She reported 3 large volume bloody stools prior to admission. Also reported worsening GERD, says sx's typically controlled with PPI but has required tums over the last 3 weeks. Two weeks ago she had a colonoscopy were 4 polyps were removed by Dr Lopez. The patient was evaluated by Dr Lopez, her Hemoglobin has 11.7 upon admission and today is still 11.8. No colonoscopy is indicated at the moment, she is stable to be discharged. The patient says she was taking aspirin , which will be stopped as she has no history of CVA, CAD or other condition that would require aspirin. Time spent discussing smoking cessation with patient: 3 to 10 minutes - Time Spent with Patient Total time spent providing and/or coordinating discharge services: Greater than 30 minutes (40 min) - Constitutional Vitals: Temp Pulse Resp BP Pulse Ox 97.9 F 94 16 125/60 95 06/16/16 11:08 06/16/16 11:08 06/16/16 11:08 06/16/16 11:08 06/16/16 11:08 General appearance: Present: A&O X 3, no acute distress, obese, answers questions appropriately - Head Head exam: Present: atraumatic, normocephalic - Eye Eye exam: Present: PERRL, conjuntiva pink, sclera anicteric Pupils: Present: PERRL - Neck Neck exam general surgery: Present: supple, trachea midline. Absent: lymphadenopathy - Respiratory Respiratory exam: Present: CTAB. Absent: accessory muscle use, rales, rhonchi, wheezes - Cardiovascular Cardiovascular exam: Present: RRR, +S1, +S2. Absent: diastolic murmur, gallop, rubs, systolic murmur - GI/Abdominal GI/Abdominal exam: Present: normal bowel sounds, soft, no peritoneal signs. Absent: distended, tenderness - Extremities Exam Extremities exam: Present: warm, radial pulses palpable and symetrical. Absent : calf tenderness, cyanotic, pedal edema - Neurological Exam Neurological exam: Present: CN II-XII intact, oriented X3, no focal deficits. Absent: pronater drift, facial droop, speech deficit - Skin Skin exam: Present: dry, intact
[2016-06-16 12:54] LABS: Hematocrit 32.9 % (35.3-44.9); Hemoglobin 10.9 g/dL (11.5-15.4)
== END 2016-06-16 12:50 | disposition home or self-care (01) ==
LOC: EMEROO 11:34 → 3ANU 11:34
PROVIDERS: ADMIT Registered Nurse; ATTEND Internal Medicine

== ENCOUNTER 2019-05-06 07:05 | Inpatient (IN) ==
[2019-05-06] MEDS ORDERED: Acetaminophen 325 MG TABLET PO ONE (07:33)
[2019-05-06 07:52] LABS: Hematocrit 37.6 % (35.3-44.9); Hemoglobin 12.2 g/dL (11.5-15.4); Mean Corpuscular HGB Conc 32.4 g/dL (31.6-35.5); Mean Corpuscular Hemoglobin 29.5 pg (28.0-33.3); Mean Corpuscular Volume 90.8 fL (83.0-100.0); Mean Platelet Volume 10.7 fL (9.4-12.4); Platelet Count 247 K/mcL (140-400); Red Blood Count 4.14 M/mcL (3.82-4.97); Red Cell Distribution Width 14.4 % (11.5-14.5); White Blood Count 15.1 K/mcL (4.3-11.1)
[2019-05-06 08:12] LABS: Calcium 9.1 mg/dL (8.6-10.3); Potassium 3.9 mEq/L (3.5-5.1)
[2019-05-06] MEDS ORDERED: 0.9 % Sodium Chloride 1,000 ML IVC ONE (08:15)
[2019-05-06 08:30] LABS: Bilirubin,Urine Moderate (Negative); Blood,Urine Large (Negative); Clarity,Urine Turbid (Clear); Color,Urine Dark Yellow (Yellow); Glucose,Urine (UA) Normal (Normal); Ketones,Urine Trace mg/dL (Negative); Leukocyte Esterase,Urine Small (Negative); Nitrite,Urine Negative (Negative); Protein,Urine >=300 mg/dL (Neg-Trace); Specific Gravity,Urine 1.027 (1.010-1.025); Urobilinogen,Urine Normal (Normal)
[2019-05-06 08:32] LABS: RBC,Urine 0-3 per hpf (0-3); Squamous Epithelial Cell,Urine Many per lpf (None-Few); WBC,Urine 15-30 per hpf (0-3)
[2019-05-06 08:52] LABS: Bacteria,Urine Many per hpf (None-Few); Hyaline Casts,Urine Few per lpf (None-Few); Renal Epithelial Cells,Urine Few per hpf (None-Few); Transitional Epi Cells,Urine Few per hpf (None-Few)
[2019-05-06] MEDS ORDERED: Aspirin 81 MG TAB.CHEW PO STA (09:44)
[2019-05-06] MEDS ORDERED: Gadolinium Contrast Agent (WT Based) IV PRN (09:44)
[2019-05-06] MEDS ORDERED: Ondansetron ODT 4 MG TAB.RAPDIS SL PRN (09:47)
[2019-05-06] MEDS ORDERED: Naloxone 0.4 MG/ML INJ IVP PRN (09:47)
[2019-05-06] MEDS ORDERED: D5% in Water 1,000 ML IVC PRN (10:19)
[2019-05-06] MEDS ORDERED: *HR* Dextrose 50 % in Water (Syg) 50 ML SYRINGE IVP PRN (10:19)
[2019-05-06] MEDS ORDERED: Dextrose Gel 15 GM/37.5 ML TUBE PO PRN ×2 (10:19)
[2019-05-06 10:48] LABS: Albumin 3.7 g/dL (3.5-5.7); Albumin/Globulin Ratio 1.2 (1.1-2.2); Bilirubin,Direct 0.3 mg/dL (0.0-0.2); Bilirubin,Indirect 0.3 mg/dL (0.0-1.0); Bilirubin,Total 0.6 mg/dL (0.3-1.0); Total Protein 6.7 g/dL (6.4-8.9)
[2019-05-06] MEDS: 0.9 % Sodium Chloride 1,000 ML IVC SCH ×2 (11:22→22:35)
[2019-05-06] MEDS: Insulin LISPRO 300 UNITS/3 ML VIAL SQ SCH ×2 (11:22→16:35)
[2019-05-06] MEDS: cefTRIAXone 2,000 MG in Water for inj. (sterile) 20 ML IVP SCH (11:22)
[2019-05-06 14:29] LABS: Thyroid Stimulating Hormone 3.125 mcIU/mL (0.340-5.600)
[2019-05-06 14:43] LABS: Folate > 22.3 ng/mL (3.0-16.0); Vitamin B12 945 pg/mL (250-1100)
[2019-05-06] MEDS: Pregabalin 75 MG CAPSULE PO SCH ×2 (16:13→22:35)
[2019-05-06] MEDS: Acetaminophen 325 MG TABLET PO PRN ×2 (16:13→23:00)
[2019-05-06] MEDS: *HR* Heparin 5,000 UNIT/ML VIAL SQ SCH (16:36)
[2019-05-06] MEDS ORDERED: Insulin LISPRO 300 UNITS/3 ML VIAL SQ SCH (21:00)
[2019-05-06] MEDS: Famotidine 20 MG TABLET PO SCH ×2 (22:34→23:30)
[2019-05-06] MEDS ORDERED: Acetaminophen IV 1,000 MG/100 ML INFUS..BTL IVPB ONE (23:12)
[2019-05-06 23:55] LABS: VBG HCO3 20 mEq/L (21-27); VBG PCO2 36 mmHg (41-51); VBG PH 7.35 pH Units (7.32-7.42); VBG PO2 98 mmHg (25-50)
[2019-05-07 01:41] LABS: Hematocrit 34.2 % (35.3-44.9); Hemoglobin 11.4 g/dL (11.5-15.4); Mean Corpuscular HGB Conc 33.3 g/dL (31.6-35.5); Mean Corpuscular Hemoglobin 29.8 pg (28.0-33.3); Mean Corpuscular Volume 89.3 fL (83.0-100.0); Mean Platelet Volume 11.2 fL (9.4-12.4); Platelet Count 211 K/mcL (140-400); Red Blood Count 3.83 M/mcL (3.82-4.97); Red Cell Distribution Width 14.6 % (11.5-14.5); White Blood Count 10.6 K/mcL (4.3-11.1)
[2019-05-07 01:44] LABS: INR 1.1
[2019-05-07 02:03] LABS: Albumin 3.3 g/dL (3.5-5.7); Bilirubin,Total 0.5 mg/dL (0.3-1.0); Calcium 8.5 mg/dL (8.6-10.3); Chol/HDL Ratio 8.5 (0-4.9); Globulin 3.2 g/dL (2.4-3.5); Potassium 3.9 mEq/L (3.5-5.1); Total Protein 6.5 g/dL (6.4-8.9)
[2019-05-07] MEDS: *HR* Heparin 5,000 UNIT/ML VIAL SQ SCH ×2 (06:06→16:40)
[2019-05-07 06:19] LABS: Estimated Average Glucose 146 mg/dl
[2019-05-07] MEDS ORDERED: *HR* FentaNYL (PF) 100 MCG/2 ML VIAL ONE (07:13)
[2019-05-07] MEDS ORDERED: *HR* Propofol 200 MG/20 ML VIAL IVP ONE (07:13)
[2019-05-07] MEDS ORDERED: Dexamethasone 4 MG/ML VIAL ONE (07:16)
[2019-05-07] MEDS ORDERED: Lidocaine -MPF 2% 2 ML VIAL ONE (07:16)
[2019-05-07] MEDS ORDERED: Ondansetron 4 MG/2 ML VIAL ONE (07:16)
[2019-05-07] MEDS ORDERED: Ondansetron 4 MG/2 ML VIAL IVP ONE (07:25)
[2019-05-07] MEDS ORDERED: *HR* Promethazine 25 MG/ML VIAL IVP PRN ×2 (07:25→09:06)
[2019-05-07] MEDS ORDERED: Famotidine 20 MG/2 ML VIAL ONE (07:35)
[2019-05-07] MEDS: cefTRIAXone 2,000 MG in Water for inj. (sterile) 20 ML IVP SCH (08:03)
[2019-05-07] MEDS ORDERED: Vitamin E 200 UNIT (90MG) CAPSULE PO SCH (09:00)
[2019-05-07] MEDS ORDERED: 0.9 % Sodium Chloride 1,000 ML IVC SCH ×3 (09:00→10:15)
[2019-05-07] MEDS ORDERED: Aspirin Enteric Coated 81 MG Tablet PO SCH (09:00)
[2019-05-07] MEDS ORDERED: Ascorbic Acid 500 MG TABLET PO SCH (09:00)
[2019-05-07] MEDS ORDERED: Acetaminophen 325 MG TABLET PO PRN (09:06)
[2019-05-07] MEDS ORDERED: Dextrose Gel 15 GM/37.5 ML TUBE PO PRN ×2 (09:06)
[2019-05-07] MEDS ORDERED: D5% in Water 1,000 ML IVC PRN (09:06)
[2019-05-07] MEDS ORDERED: Ondansetron ODT 4 MG TAB.RAPDIS SL PRN (09:06)
[2019-05-07] MEDS ORDERED: Naloxone 0.4 MG/ML INJ IVP PRN (09:06)
[2019-05-07] MEDS ORDERED: *HR* Dextrose 50 % in Water (Syg) 50 ML SYRINGE IVP PRN (09:06)
[2019-05-07] MEDS ORDERED: Aminoglycoside Consult 1 EACH MC ONE (09:08)
[2019-05-07] MEDS ORDERED: cefTRIAXone 2,000 MG in Water for inj. (sterile) 20 ML IVP SCH (10:00)
[2019-05-07] MEDS ORDERED: Famotidine 20 MG TABLET PO SCH (10:00)
[2019-05-07] MEDS: Insulin LISPRO 300 UNITS/3 ML VIAL SQ SCH ×4 (10:06→22:13)
[2019-05-07] MEDS: Famotidine 20 MG TABLET PO SCH (10:07)
[2019-05-07] MEDS ORDERED: Sodium Bicarbonate 75 MEQ in 0.45 % Sodium Chloride 1,000 ML IVC SCH (10:16)
[2019-05-07] MEDS: Vitamin E 200 UNIT (90MG) CAPSULE PO SCH (10:32)
[2019-05-07] MEDS: Aspirin Enteric Coated 81 MG Tablet PO SCH (10:33)
[2019-05-07] MEDS: Ascorbic Acid 500 MG TABLET PO SCH (10:33)
[2019-05-07 12:05] LABS: ABG Base Excess -9 mEq/L (-2 to 3); ABG HCO3 18 mEq/L (21-27); ABG Oxygen Saturation 93 % (95-98); ABG PCO2 38 mmHg (35-45); ABG PH 7.28 pH Units (7.32-7.45); ABG PO2 76 mmHg (85-104); ABG TCO2 19 mEq/L (20-26)
[2019-05-07] MEDS ORDERED: Sodium Bicarbonate 50 MEQ/50 ML VIAL IVP ONE (12:06)
[2019-05-07 12:17] LABS: Amphetamine Screen,Urine Negative ng/mL (Cutoff=1000); Barbiturate Screen,Urine Negative ng/mL (Cutoff=200); Benzodiazepines Screen,Urine Negative ng/mL (Cutoff=200); Cannabinoid Screen,Urine Negative ng/mL (Cutoff = 50); Cocaine Screen,Urine Negative ng/mL (Cutoff= 300); Opiate Screen,Urine Negative ng/mL (Cutoff=300); Phencyclidine Screen,Urine Negative ng/mL (Cutoff=25)
[2019-05-07] MEDS: Piperacillin/Tazobactam 3.375 GM in 0.9 % Sodium Chloride Mini Bag 100 ML IVPB SCH (13:16)
[2019-05-07 13:24] LABS: Adenovirus Not Detected (Not Detect); Bordetella Pertussis Not Detected (Not Detect); Chlamydophila pneumoniae Not Detected (Not Detect); Coronavirus 229E Not Detected (Not Detect); Coronavirus HKU1 Not Detected (Not Detect); Coronavirus NL63 Not Detected (Not Detect); Coronavirus OC43 Not Detected (Not Detect); Human Metapneumovirus Not Detected (Not Detect); Human Rhinovirus/Enterovirus Not Detected (Not Detect); Influenza A Subtype 2009 H1 Not Detected (Not Detect); Influenza B Not Detected (Not Detect); Mycoplasma pneumoniae Not Detected (Not Detect); Parainfluenza Virus 1 Not Detected (Not Detect); Parainfluenza Virus 2 Not Detected (Not Detect); Parainfluenza Virus 3 Not Detected (Not Detect); Parainfluenza Virus 4 Not Detected (Not Detect); Respiratory Syncytial Virus Not Detected (Not Detect)
[2019-05-07] MEDS ORDERED: Furosemide 40 MG/4 ML VIAL IVP ONE (14:22)
[2019-05-07] MEDS ORDERED: Albumin 25% 25gram/100mL 25 GM/100 ML IV.SOLN IVPB ONE (14:24)
[2019-05-07 14:41] LABS: Hematocrit 31.2 % (35.3-44.9); Hemoglobin 10.2 g/dL (11.5-15.4); Mean Corpuscular HGB Conc 32.7 g/dL (31.6-35.5); Mean Corpuscular Hemoglobin 29.3 pg (28.0-33.3); Mean Corpuscular Volume 89.7 fL (83.0-100.0); Mean Platelet Volume 11.1 fL (9.4-12.4); Platelet Count 205 K/mcL (140-400); Red Blood Count 3.48 M/mcL (3.82-4.97); Red Cell Distribution Width 14.9 % (11.5-14.5); White Blood Count 10.1 K/mcL (4.3-11.1)
[2019-05-07] MEDS ORDERED: Furosemide 40 MG/4 ML VIAL ONE (14:44)
[2019-05-07 15:07] LABS: Anisocytosis 1+ (Not Present); Lymphocytes # 0.2 K/mcL (0.6-4.6); Lymphocytes % 2.1 %; Monocytes # 1.5 K/mcL (0.0-1.3); Monocytes % 14.6 %; Neutrophils # 8.4 K/mcL (1.6-8.9); Platelet Estimate Normal (Normal); Segmented Neutrophils % 83.3 %
[2019-05-07 18:28] LABS: ABG Base Excess -6 mEq/L (-2 to 3); ABG HCO3 19 mEq/L (21-27); ABG Oxygen Saturation 97 % (95-98); ABG PCO2 38 mmHg (35-45); ABG PH 7.31 pH Units (7.32-7.45); ABG PO2 104 mmHg (85-104); ABG TCO2 21 mEq/L (20-26); Blood Gas Modality avaps; Blood Gas VT 500 cc
[2019-05-07] MEDS ORDERED: Insulin LISPRO 300 UNITS/3 ML VIAL SQ SCH (21:00)
[2019-05-08 01:52] LABS: Basophils % 0.2 %; Hematocrit 29.8 % (35.3-44.9); Hemoglobin 10.1 g/dL (11.5-15.4); Immature Granulocytes % 0.5 % (0-4); Lymphocytes # 0.6 K/mcL (0.6-4.6); Lymphocytes % 5.7 %; Mean Corpuscular HGB Conc 33.9 g/dL (31.6-35.5); Mean Corpuscular Volume 88.4 fL (83.0-100.0); Mean Platelet Volume 11.1 fL (9.4-12.4); Monocytes # 0.8 K/mcL (0.0-1.3); Monocytes % 7.6 %; Neutrophils # 9.5 K/mcL (1.6-8.9); Platelet Count 214 K/mcL (140-400); Red Blood Count 3.37 M/mcL (3.82-4.97); Red Cell Distribution Width 14.8 % (11.5-14.5)
[2019-05-08 02:00] LABS: Calcium 8.5 mg/dL (8.6-10.3); Magnesium 1.6 mg/dL (1.6-2.6); Phosphorous 4.8 mg/dL (2.7-4.5); Potassium 3.9 mEq/L (3.5-5.1)
[2019-05-08] MEDS: Insulin LISPRO 300 UNITS/3 ML VIAL SQ SCH ×7 (04:47→21:47)
[2019-05-08] MEDS: *HR* Heparin 5,000 UNIT/ML VIAL SQ SCH ×2 (06:07→17:36)
[2019-05-08] MEDS: Piperacillin/Tazobactam 3.375 GM in 0.9 % Sodium Chloride Mini Bag 100 ML IVPB SCH ×2 (06:09→17:36)
[2019-05-08] MEDS: Ascorbic Acid 500 MG TABLET PO SCH (08:56)
[2019-05-08] MEDS: Aspirin Enteric Coated 81 MG Tablet PO SCH (08:57)
[2019-05-08] MEDS: Vitamin E 200 UNIT (90MG) CAPSULE PO SCH (08:57)
[2019-05-08] MEDS ORDERED: Patient Taking Own Medication 1 EACH PO SCH (09:00)
[2019-05-08] MEDS ORDERED: cefTRIAXone 2,000 MG in Water for inj. (sterile) 20 ML IVP SCH (09:00)
[2019-05-08 13:05] LABS: Bilirubin,Urine Negative (Negative); Blood,Urine Large (Negative); Clarity,Urine Turbid (Clear); Color,Urine Yellow (Yellow); Glucose,Urine (UA) Normal (Normal); Ketones,Urine Negative (Negative); Leukocyte Esterase,Urine Large (Negative); Nitrite,Urine Negative (Negative); PH,Urine 5.5 pH Units (5.0-8.0); Protein,Urine >=300 mg/dL (Neg-Trace); Specific Gravity,Urine 1.022 (1.010-1.025); Urobilinogen,Urine Normal (Normal)
[2019-05-08 13:33] LABS: Creatinine,Urine 120 mg/dL; Microalbumin,Urine > 1350 mg/L; Protein/Creatinine Ratio,Urine 2.93 mg/mg (0.00-0.20)
[2019-05-08 13:37] LABS: WBC,Urine 30-50 per hpf (0-3)
[2019-05-08 13:38] LABS: Hyaline Casts,Urine Few per lpf (None-Few); RBC,Urine 15-30 per hpf (0-3); Squamous Epithelial Cell,Urine Many per lpf (None-Few)
[2019-05-08 13:39] LABS: Bacteria,Urine Many per hpf (None-Few)
[2019-05-08] MEDS: Lactobacillus 1 EACH CAP.SPRINK PO SCH (21:47)
[2019-05-08] MEDS: Vancomycin Oral Soln 125 MG/2.5 ML UDC PO SCH (23:22)
[2019-05-09 01:35] LABS: Basophils % 0.1 %; Eosinophils # 0.1 K/mcL (0.0-0.6); Eosinophils % 1.3 %; Hemoglobin 11.1 g/dL (11.5-15.4); Immature Granulocytes % 0.7 % (0-4); Lymphocytes # 1.1 K/mcL (0.6-4.6); Lymphocytes % 9.9 %; Mean Corpuscular HGB Conc 33.6 g/dL (31.6-35.5); Mean Corpuscular Hemoglobin 29.3 pg (28.0-33.3); Mean Corpuscular Volume 87.1 fL (83.0-100.0); Mean Platelet Volume 11.3 fL (9.4-12.4); Monocytes # 0.9 K/mcL (0.0-1.3); Monocytes % 8.6 %; Neutrophils # 8.5 K/mcL (1.6-8.9); Platelet Count 266 K/mcL (140-400); Red Blood Count 3.79 M/mcL (3.82-4.97); Red Cell Distribution Width 14.7 % (11.5-14.5); Segmented Neutrophils % 79.4 %; White Blood Count 10.7 K/mcL (4.3-11.1)
[2019-05-09] MEDS: *HR* LORazepam 0.5 MG TABLET PO PRN ×2 (01:50→23:32)
[2019-05-09 02:04] LABS: Uric Acid 10.3 mg/dL (2.3-7.6)
[2019-05-09 02:26] LABS: Magnesium 1.6 mg/dL (1.6-2.6); Phosphorous 2.6 mg/dL (2.7-4.5); Potassium 3.8 mEq/L (3.5-5.1)
[2019-05-09] MEDS: *HR* Heparin 5,000 UNIT/ML VIAL SQ SCH (05:16)
[2019-05-09] MEDS: Piperacillin/Tazobactam 3.375 GM in 0.9 % Sodium Chloride Mini Bag 100 ML IVPB SCH ×3 (05:16→23:33)
[2019-05-09] MEDS: Vitamin E 200 UNIT (90MG) CAPSULE PO SCH (07:46)
[2019-05-09] MEDS: Aspirin Enteric Coated 81 MG Tablet PO SCH (07:46)
[2019-05-09] MEDS: Insulin LISPRO 300 UNITS/3 ML VIAL SQ SCH ×4 (07:46→22:29)
[2019-05-09] MEDS: Lactobacillus 1 EACH CAP.SPRINK PO SCH ×2 (07:46→22:29)
[2019-05-09] MEDS: Ascorbic Acid 500 MG TABLET PO SCH (07:46)
[2019-05-09] MEDS: Vancomycin Oral Soln 125 MG/2.5 ML UDC PO SCH ×3 (07:47→13:52)
[2019-05-09] MEDS ORDERED: Pregabalin 75 MG CAPSULE PO SCH (10:45)
[2019-05-09] MEDS ORDERED: 0.9 % Sodium Chloride 500 ML IVC SCH (12:00)
[2019-05-09] MEDS: amLODIPine 5 MG TABLET PO SCH ×2 (12:13→12:33)
[2019-05-09] MEDS ORDERED: levoFLOXacin 750 MG/150 ML 750 MG/150 ML BAG IVPB SCH (14:00)
[2019-05-09] MEDS ORDERED: Piperacillin/Tazobactam 3.375 GM in 0.9 % Sodium Chloride Mini Bag 100 ML IVPB SCH (14:00)
[2019-05-09 14:05] LABS: ABG Base Excess -3 mEq/L (-2 to 3); ABG HCO3 21 mEq/L (21-27); ABG Oxygen Saturation 95 % (95-98); ABG PCO2 30 mmHg (35-45); ABG PH 7.45 pH Units (7.32-7.45); ABG PO2 72 mmHg (85-104); ABG TCO2 21 mEq/L (20-26); Blood Gas FiO2 1.5 (1-15=lpm or21-100=%)
[2019-05-10 03:56] LABS: Basophils % 0.2 %; Eosinophils # 0.1 K/mcL (0.0-0.6); Eosinophils % 1.5 %; Hematocrit 31.3 % (35.3-44.9); Hemoglobin 10.4 g/dL (11.5-15.4); Immature Granulocytes % 1.5 % (0-4); Lymphocytes # 1.3 K/mcL (0.6-4.6); Lymphocytes % 14.4 %; Mean Corpuscular HGB Conc 33.2 g/dL (31.6-35.5); Mean Corpuscular Hemoglobin 29.1 pg (28.0-33.3); Mean Corpuscular Volume 87.7 fL (83.0-100.0); Mean Platelet Volume 10.7 fL (9.4-12.4); Monocytes % 11.1 %; Neutrophils # 6.3 K/mcL (1.6-8.9); Platelet Count 267 K/mcL (140-400); Red Blood Count 3.57 M/mcL (3.82-4.97); Red Cell Distribution Width 14.5 % (11.5-14.5); Segmented Neutrophils % 71.3 %; White Blood Count 8.8 K/mcL (4.3-11.1)
[2019-05-10 04:13] LABS: Calcium 8.8 mg/dL (8.6-10.3); Magnesium 1.4 mg/dL (1.6-2.6); Phosphorous 3.4 mg/dL (2.7-4.5); Potassium 3.5 mEq/L (3.5-5.1)
[2019-05-10] MEDS ORDERED: *HR* Enoxaparin 30 MG/0.3 ML SYRINGE SQ SCH (06:00)
[2019-05-10] MEDS: Vitamin E 200 UNIT (90MG) CAPSULE PO SCH (08:46)
[2019-05-10] MEDS: Ascorbic Acid 500 MG TABLET PO SCH (08:46)
[2019-05-10] MEDS: Aspirin Enteric Coated 81 MG Tablet PO SCH (08:46)
[2019-05-10] MEDS: Insulin LISPRO 300 UNITS/3 ML VIAL SQ SCH (08:46)
[2019-05-10] MEDS: Piperacillin/Tazobactam 3.375 GM in 0.9 % Sodium Chloride Mini Bag 100 ML IVPB SCH (08:47)
[2019-05-10] MEDS: Lactobacillus 1 EACH CAP.SPRINK PO SCH (08:47)
[2019-05-10] MEDS: amLODIPine 5 MG TABLET PO SCH (08:47)
[2019-05-10 09:50] VITALS: BP 158/53
[2019-05-10] MEDS ORDERED: levoFLOXacin 750 MG TABLET PO SCH (11:30)
[2019-05-11] MEDS ORDERED: *HR* Enoxaparin 40 MG/0.4 ML SYRINGE SQ SCH (06:00)
== END 2019-05-10 16:11 | disposition home or self-care (01) | DRG 853 ==
LOC: 2ANU 07:05 → EMEROOARM 07:05 → SUATTDRO 10:14 → 2ANU 10:50 → SUATTDRO 05-07 11:00 → 2ANU 05-08 23:35 → 2NNU 05-09 16:02
PROVIDERS: ADMIT Family Medicine; ATTEND Internal Medicine